=== PATIENT | female | born 1995 | race Caucasian/White ===

== ENCOUNTER 2022-02-17 13:14 | Emergency (ER) | payer MEDICAID, OTHER ==
[~2022-02-17] VITALS: Ht 157.5 cm; Wt 59.0 kg
[2022-02-17 13:28] VITALS: BP 106/74
--- NOTE | 2022-02-17 13:32 | ED EENT ---
History of Present Illness General Chief Complaint: Dental Problems/Pain Stated Complaint: DENTAL PAIN History of Present Illness Date Seen by Provider: Feb 17, 2022 Time Seen by Provider: 13:32 Initial Comments 27-year-old female presents with dental pain. She reports that she "cracked a tooth for 5 days ago" and presents because of pain. She is approximately 37 weeks . Patient has tried topical medications with minimal relief. No fevers chills nausea or vomiting Allergies and Home Medications Patient Home Medication List Home Medication List Reviewed: Yes Review of Systems Review of Systems Constitutional: no symptoms reported Eyes: No Symptoms Reported Ears: No Symptoms Reported Nose: no symptoms reported Mouth: see HPI Throat: no symptoms reported Respiratory: no symptoms reported Cardiovascular: no symptoms reported Physical Exam Height, Weight, BMI Height: '" Weight: lbs. oz. kg; BMI Method: General Appearance: WD/WN, no apparent distress Mouth/Throat: other (Significant dental carry at left lower tooth with fractured tooth. Multiple missing teeth on her left lower gums with only 1 tooth left) Cardiovascular: normal peripheral pulses, regular rate, rhythm Respiratory: lungs clear, normal breath sounds Neurologic/Psychiatric: alert, normal mood/affect, oriented x 3 Skin: normal color, warm/dry Progress/Results/Core Measures Progress Progress Note : Progress Note Patient with severe dental caries and fractured tooth. Discussed with her the need to brush good use Listerine and then place a temporary filling. I will give her a couple hydrocodone since she is limited on what she can take being along with antibiotic. Patient stable and discharged Departure Impression Primary Impression: Pain due to dental caries Additional Impression: Fracture, tooth Qualified Codes: S02.5XXA - Fracture of tooth (traumatic), initial encounter for closed fracture Disposition: 01 HOME, SELF-CARE Condition: Stable Departure-Patient Inst. Referrals: RENNY MADDEN MD (PCP) Primary Care Physician Patient Instructions: Tooth Decay ED, Dental Pain Add. Discharge Instructions: Please brush very well and gargle with Listerine and place a temporary filling Please follow-up with a dentist as soon as possible 1/2 perocet every 8 hr as needed for pain. All discharge instructions reviewed with patient and/or family. Voiced un derstanding. Scripts Oxycodone HCl/Acetaminophen (Oxycodone-Acetaminophen 5-325) 5 Mg-325 Mg Tablet 1 EACH PO Q8H PRN for PAIN-MODERATE MDD 6, #6 TAB 0 Refills Prov: FREDERICK QUIÑONEZ DO 02/17/22 Penicillin V Potassium (Penicillin V Potassium) 500 Mg Tablet 500 MG PO TID, #30 TAB Prov: FREDERICK QUIÑONEZ DO 02/17/22 FREDERIKC QUIÑONEZ DO Feb 17, 2022 13:32
[2022-02-17] MEDS ORDERED: OXYC1TAB11 PO (13:44)
[2022-02-17] MEDS ORDERED: PENI500T PO (13:44)
== END 2022-02-17 14:15 | disposition home or self-care (01) ==
LOC: ER FS 13:16
DX: O99.891 Other specified diseases and conditions complicating pregnancy (principal); K02.9 Dental caries, unspecified; K03.81 Cracked tooth; Z28.310 Unvaccinated for COVID-19; Z3A.37 37 weeks gestation of pregnancy
CPT/HCPCS: 99282

== ENCOUNTER 2022-02-27 09:15 | Outpatient (CLI) | payer MEDICAID ==
[~2022-02-27] VITALS: Ht 154.6 cm; Wt 59.1 kg
[2022-02-27] VITALS (9 sets, daily range): BP systolic 86–94; BP diastolic 50–54
[~2022-02-27 09:15] MED LIST: OXYC1TAB11 PO; PENI500T PO
[2022-02-27 10:53] LABS: BILIRUBIN,URINE NEGATIVE (NEGATIVE); CLARITY,URINE CLEAR; COLOR,URINE YELLOW; GLUCOSE, URINE (UA) NEGATIVE (NEGATIVE); KETONES,URINE NEGATIVE (NEGATIVE); LEUKOCYTE ESTERASE ,URINE 2+ (NEGATIVE); NITRITE,URINE NEGATIVE (NEGATIVE); PH,URINE 5.5 (5-9); PROTEIN,URINE NEGATIVE (NEGATIVE)
[2022-02-27 11:01] LABS: BACTERIA,URINE MODERATE /HPF
[2022-02-27] MEDS ORDERED: BETAMETHASONE ACE/NA PHOS 6 MG/ML (CELESTONE SOLUSPAN) IM SCH (14:00)
[2022-02-27] MEDS: LACTATED RINGERS 1,000 ML IV SCH ×2 (14:23→15:08)
[2022-02-27] MEDS ORDERED: NIFEdipine 10 MG CAPS (WOMEN'S SERVICES ONLY!!!) PO NR (14:30)
[2022-02-27] MEDS: LACTATED RINGERS 500 ML IV SCH ×2 (14:30→15:09)
--- NOTE | 2022-02-27 14:48 | Short Stay Summary ---
History of Present Illness History of Present Illness Reason for visit/HPI 27 yo at 34w0d (by 21 week US) presented to Labor and delivery for contractions. She reported her due date was either 03/24 or 03/31/2022 to nursing. She admits dry heaving this morning which is new, and a recent dental infection for which she was given antibiotics and took a couple of days, then missed 2 or 3 and took one dose last night. She denies fever. She has nasal congestion and sore throat and there have been household contacts with flu. She denies complications with but has had only 2 visits and the second trimester US is the first dating, and she has completely unknown LMP. She reports delivering all 4 other vaginally between 35 and 37 weeks with no other complications. Date of Admission 02/27/2022 Date of Discharge 02/27/2022 Time Seen by Provider: 14:20 Attending Physician Trini Dave MD Admitting Physician Admitting Physician: Attending Physician: Cristal Aragon MD Consult Allergies and Home Medications Allergies Coded Allergies: peach (Verified Allergy, Mild, Hives, 02/27/22) Patient Home Medication List Home Medication List Reviewed: No Oxycodone HCl/Acetaminophen (Oxycodone-Acetaminophen 5-325) 5 Mg-325 Mg Tablet, 1 EACH PO Q8H PRN for PAIN-MODERATE Prescribed by: FREDERICK QUIÑONEZ on 02/17/22 1344 Penicillin V Potassium (Penicillin V Potassium) 500 Mg Tablet, 500 MG PO TID Prescribed by: FREDERICK QUIÑONEZ on 02/17/22 1344 Past Wskmnlw-Hknxhi-Bhblly Hx Patient Social History Number of Children: 4 Alcohol Use?: No Tobacco type used: Cigarettes Surgeries No Respiratory No Cardiovascular No Neurological No Reproductive System : Yes Expected Date of Delivery: Apr 10, 2022 Hx : 5 Hx Para: 4 Hx Reproductive Disorders: No Family Medical History Significant Family History: Diabetes Review of Systems Constitutional: No fever EENTM: nose congestion, throat pain Respiratory: No cough, No short of breath Cardiovascular: No chest pain Gastrointestinal: diarrhea, nausea, vomiting Musculoskeletal: no symptoms reported Skin: no symptoms reported Psychiatric/Neurological: No Symptoms Reported Physical Exam Vital Signs Capillary Refill : Height, Weight, BMI Height: '" Weight: lbs. oz. kg; 23.00 BMI Method: General Appearance: No Apparent Distress, WD/WN Respiratory: Lungs Clear, Normal Breath Sounds Cardiovascular: Regular Rate, Rhythm, No Murmur Gastrointestinal: Other (uterus nontender) Extremity: No Pedal Edema Neurologic/Psychiatric: Alert, Normal Mood/Affect Skin: Normal Color, Warm/Dry Short Stay Diagnosis Discharge Diagnosis-Short Stay Admission Diagnosis: contractions Third trimester Final Discharge Diagnosis: labor suspect Third trimester Conclusion Labs Laboratory Tests 02/27/22 10:48: Urine Color YELLOW, Urine Clarity CLEAR, Urine pH 5.5, Urine Specific Crescent <=1.005, Urine Protein NEGATIVE, Urine Glucose (UA) NEGATIVE, Urine Ketones NEGATIVE, Urine Nitrite NEGATIVE, Urine Bilirubin NEGATIVE, Urine Urobilinogen 0.2, Urine Leukocyte Esterase 2+H, Urine RBC (Auto) NEGATIVE, Urine RBC NONE, Urine WBC 10-25H, Urine Squamous Epithelial Cells 5-10, Urine Crystals NONE, Urine Bacteria MODERATEH, Urine Casts NONE, Urine Mucus NEGATIVE, Urine Culture Indicated CULTURE PENDING Conclusion/Plan Pt found to be 34w0d by approximately 21 week US, limited care- changed from 3-4 cm and abimbola every 5-10 minutes, discussed risks of delivery at this gestation and likelihood of needing NICU, especially given her uncertain dating and recommend transfer. Betamethasone given, n icardipine given and [facility] accepted in transfer per discussion with Dr. Marilou Garza. Checking flu/COVID swab due to symptoms and exposure, results pending. CRISTAL ARAGON MD Feb 27, 2022 14:48
[2022-02-27 14:53] LABS: BASOPHILS # (AUTO) 0.1 10^3/uL (0.0-0.1); BASOPHILS % (AUTO) 1 % (0-10); EOSINOPHILS # (AUTO) 0.2 10^3/uL (0.0-0.3); EOSINOPHILS % (AUTO) 1 % (0-10); HEMATOCRIT 30 % (35-52); HEMOGLOBIN 10.4 g/dL (11.5-16.0); LYMPHOCYTES # (AUTO) 1.5 10^3/uL (1.0-4.0); LYMPHOCYTES % (AUTO) 14 % (12-44); MEAN CORPUSCULAR HEMOGLOBIN 31 pg (25-34); MEAN CORPUSCULAR HGB CONC 35 g/dL (32-36); MEAN CORPUSCULAR VOLUME 90 fL (80-99); MEAN PLATELET VOLUME 8.9 fL (9.0-12.2); MONOCYTES # (AUTO) 0.8 10^3/uL (0.0-1.0); MONOCYTES % (AUTO) 7 % (0-12); NEUTROPHILS # (AUTO) 7.8 10^3/uL (1.8-7.8); NEUTROPHILS % (AUTO) 75 % (42-75); PLATELET COUNT 293 10^3/uL (130-400); WHITE BLOOD COUNT 10.4 10^3/uL (4.3-11.0)
[2022-02-27] MEDS ORDERED: NIFEdipine 10 MG CAPS (WOMEN'S SERVICES ONLY!!!) PO ONE (15:15)
[2022-02-27 15:24] LABS: AMPHETAMINE SCREEN, URINE NEGATIVE (NEGATIVE); BARBITURATE SCREEN URINE NEGATIVE (NEGATIVE); BENZODIAZEPINES SCREEN URINE NEGATIVE (NEGATIVE); CANNABINOID SCREEN, URINE POSITIVE (NEGATIVE); COCAINE SCREEN URINE NEGATIVE (NEGATIVE); METHADONE STAT NEGATIVE (NEGATIVE); OPIATE SCREEN URINE NEGATIVE (NEGATIVE); OXYCODONE STAT NEGATIVE (NEGATIVE); PROPOXYPHENE STAT NEGATIVE (NEGATIVE); TRICYCLIC ANTIDEPRESSANTS SCRE NEGATIVE (NEGATIVE)
[2022-02-27] MEDS ORDERED: NIFEdipine 10 MG CAPS (WOMEN'S SERVICES ONLY!!!) PO SCH (18:30)
[2022-02-28] MEDS ORDERED: NIFEdipine 10 MG CAPS (WOMEN'S SERVICES ONLY!!!) PO ONE (15:00)
== END 2022-02-27 17:50 | disposition other institution (70) ==
LOC: WSo 09:15 → LDRP 09:15 → WSo 17:50
PROVIDERS: ATTEND Family Medicine
DX: O47.03 False labor before 37 completed weeks of gestation, third trimester (principal); Z3A.34 34 weeks gestation of pregnancy
CPT/HCPCS: 36415; 80306; 81000; 85025; 86850; 86900; 86901; 87088; 87636

== ENCOUNTER 2022-03-13 20:06 | Emergency (ER) | payer MEDICAID ==
[~2022-03-13] VITALS: Ht 157.5 cm; Wt 61.2 kg
--- NOTE | 2022-03-13 20:27 | ED GI ---
General Chief Complaint: OB > 20 WEEKS Stated Complaint: OB,BACK/RIB PAIN History of Present Illness Date Seen by Provider: Mar 13, 2022 Time Seen by Provider: 20:24 Initial Comments 27-year-old female 36 and 0 here feeling like she is in labor. No gush of fluid but she has been having contractions which she feels like all day. States started know how long they have been going on because she feels like she has a high pain tolerance patient not having a fever. She has had all of her children she says around 36/37 weeks. She was seen in [place] on Wednesday and was dilated about 4 and they would let her go. Allergies and Home Medications Allergies Coded Allergies: peach (Verified Allergy, Mild, Hives, 02/27/22) Patient Home Medication List Home Medication List Reviewed: Yes Oxycodone HCl/Acetaminophen (Oxycodone-Acetaminophen 5-325) 5 Mg-325 Mg Tablet, 1 EACH PO Q8H PRN for PAIN-MODERATE Prescribed by: FREDERICK QUIÑONEZ on 02/17/22 1344 Penicillin V Potassium (Penicillin V Potassium) 500 Mg Tablet, 500 MG PO TID Prescribed by: FREDERICK QUIÑONEZ on 02/17/22 1344 Review of Systems Review of Systems Constitutional: see HPI Past Uipaiee-Vrazmy-Zhxryo Hx Patient Social History Tobacco Use?: No Past Medical History Surgeries: No Respiratory: No Cardiac: No Neurological: No Reproductive Disorders: No Family Medical History Diabetes Physical Exam Vital Signs Vital Signs - First Documented 03/13/22 20:15 Temp 36.9 Pulse 102 Resp 20 B/P (MAP) 139/86 (103) Pulse Ox 100 O2 Delivery Room Air Capillary Refill : Height/Weight/BMI Height: '" Weight: lbs. oz. kg; 24.72 BMI Method: General Appearance: WD/WN, no apparent distress Pelvic: normal external exam, other (-2 station, 50% effaced, 4-5 cm. Positive movement) Neurologic/Psychiatric: alert, oriented x 3 Progress/Results/Core Measures Results/Orders Vital Signs/I&O 03/13/22 20:15 Temp 36.9 Pulse 102 Resp 20 B/P (MAP) 139/86 (103) Pulse Ox 100 O2 Delivery Room Air Departure Impression Primary Impression: Uterine contractions at greater than 20 weeks of gestation Disposition: 30 STILL A PATIENT Condition: Unchanged Admissions Decision to Admit Reason: Admit from ER (General) Decision to Admit/Date: Mar 13, 2022 Time/Decision to Admit Time: 20:42 Transfer Transfer Reason: Exceeds level of care Time Spoke to Accepting Phy: 20:42 Transfer Progress Notes Spoke with Dr. Villanueva who accepted. We have spoken with the labor floor at [facility]. We will transfer patient down ACLS. Transfer Time: 20:42 Transfer Facility: [facility] Method of Transfer: EMS Departure-Patient Inst. Referrals: RENNY MADDEN MD (PCP) Primary Care Physician Patient Instructions: Labor WINSTON DODSON MD Mar 13, 2022 20:27
[2022-03-13 20:43] VITALS: BP 96/56
== END 2022-03-13 20:45 | disposition still patient (30) ==
LOC: EDUNIT# 20:06 → ER FS 20:07
DX: O62.9 Abnormality of forces of labor, unspecified (principal); Z28.310 Unvaccinated for COVID-19; Z3A.00 Weeks of gestation of pregnancy not specified

== ENCOUNTER 2022-03-13 21:20 | Outpatient (CLI) | payer MEDICAID ==
[~2022-03-13] VITALS: Ht 157.5 cm; Wt 61.2 kg
[2022-03-13 21:30] VITALS: BP 96/55
[2022-03-13 23:16] LABS: BILIRUBIN,URINE NEGATIVE (NEGATIVE); CLARITY,URINE CLEAR; COLOR,URINE YELLOW; GLUCOSE, URINE (UA) NEGATIVE (NEGATIVE); KETONES,URINE NEGATIVE (NEGATIVE); LEUKOCYTE ESTERASE ,URINE NEGATIVE (NEGATIVE); NITRITE,URINE NEGATIVE (NEGATIVE); PH,URINE 6.5 (5-9); PROTEIN,URINE NEGATIVE (NEGATIVE)
[2022-03-14] LABS: BACTERIA,URINE NEGATIVE /HPF
[2022-03-14 01:20] VITALS: BP 102/50
[2022-03-14 05:14] VITALS: BP 102/53
[2022-03-14] MEDS ORDERED: ACETAMINOPHEN 500 MG TAB (TYLENOL) PO ONE (07:15)
[2022-03-14 08:10] VITALS: BP 102/59
--- NOTE | 2022-03-14 09:30 | Short Stay Summary ---
History of Present Illness History of Present Illness Reason for visit/HPI Cherry is a 27-year-old who is at 36 weeks gestation who presents to women's services during the evening of March 13, 2022 with uterine contractions. She was seen initially at [place] emergency department before transferred over to [facility] for further monitoring. At that time they were unsure whether she was in labor and since there is no monitor at [place] she was sent to [facility]. She did have late care and ultrasound performed at 21 weeks her [facility] on December 02 revealed her to be 21 weeks which gave her a due date of April 10, 2022. Two weeks ago she had been transferred to [place] for labor but after being there apparently 4 days she had no cervical change and was released to home. Date of Admission observation admission date of March 13, 2022 Date of Discharge March 14, 2022 Time Seen by Provider: 08:15 Attending Physician Trini Dave MD Admitting Physician Admitting Physician: Attending Physician: Ryan Garcia MD Consult Allergies and Home Medications Allergies Coded Allergies: peach (Verified Allergy, Mild, Hives, 02/27/22) Patient Home Medication List Home Medication List Reviewed: Yes Oxycodone HCl/Acetaminophen (Oxycodone-Acetaminophen 5-325) 5 Mg-325 Mg Tablet, 1 EACH PO Q8H PRN for PAIN-MODERATE Prescribed by: FREDERICK QUIÑONEZ on 02/17/22 1344 Penicillin V Potassium (Penicillin V Potassium) 500 Mg Tablet, 500 MG PO TID Prescribed by: FREDREICK QUIÑONEZ on 02/17/22 1344 Past Sstegie-Ixquhv-Uwdlau Hx Patient Social History Smoking Status: Current Everyday Smoker 2nd Hand Smoke Exposure: No Surgeries No Respiratory No Cardiovascular No Neurological No Reproductive System Expected Date of Delivery: Apr 10, 2022 Hx : 5 Hx Para: 4 Hx Reproductive Disorders: No Family Medical History Significant Family History: Diabetes Review of Systems Constitutional: see HPI Physical Exam Vital Signs Vital Signs - First Documented 03/13/22 21:30 Temp 36.6 Pulse 93 Resp 16 B/P (MAP) 96/55 Pulse Ox 99 O2 Delivery Room Air Capillary Refill : Less Than 3 Seconds Height, Weight, BMI Height: '" Weight: lbs. oz. kg; 24.67 BMI Method: General Appearance: No Apparent Distress Comments cervical check did reveal her at 4 cm with presenting part high. Cervical thickness was noted. monitor is with occasional contraction but no labor pattern. Otherwise reactive Short Stay Diagnosis Discharge Diagnosis-Short Stay Final Discharge Diagnosis: 1. labor at 36 weeks without cervical change and no evidence for labor Conclusion Labs Laboratory Tests 03/13/22 22:00: Urine Color YELLOW, Urine Clarity CLEAR, Urine pH 6.5, Urine Specific Kemp 1.010L, Urine Protein NEGATIVE, Urine Glucose (UA) NEGATIVE, Urine Ketones NEGATIVE, Urine Nitrite NEGATIVE, Urine Bilirubin NEGATIVE, Urine Urobilinogen 0.2, Urine Leukocyte Esterase NEGATIVE, Urine RBC (Auto) NEGATIVE, Urine RBC NONE, Urine WBC NONE, Urine Crystals NONE, Urine Bacteria NEGATIVE, Urine Casts NONE, Urine Mucus NEGATIVE, Urine Culture Indicated NO Conclusion/Plan this morning after checking her cervix, I informed patient as well as her boyfriend that she does not appear to be in labor. Her cervix is essentially unchanged from her previous checks performed, even going back to when she was at [facility]. Since she does not appear to be in labor I recommend that she go ahead and rest for an additional week to get her past 37 weeks. She does live in [place] but her boyfriend does have transportation. She will return here if her contractions do become regular. If she does not go on labor during this week she will follow up with Dr. Dave within 1 week at [facility] in [place]. RYAN GARCIA MD Mar 14, 2022 09:30
== END 2022-03-14 12:39 | disposition home or self-care (01) ==
LOC: LDRP 21:20 → WSo 21:20
PROVIDERS: ATTEND Family Medicine
DX: O99.891 Other specified diseases and conditions complicating pregnancy (principal); M54.89 Other dorsalgia; Z3A.36 36 weeks gestation of pregnancy
CPT/HCPCS: 81000; 99213